=== PATIENT | male | born 1965 | race Caucasian/White ===

== ENCOUNTER 2017-04-03 09:31 | Day surgery (SDC) | payer BC ==
[2017-04-02 08:57] VITALS: BMI 29.4
[~2017-04-03 09:31] MED LIST: LACTATED RINGERS 1,000 ML IV SCH; LIDOCAINE 1% 20 ML VIAL (10MG/ML) FOR IV START INTRADERMA PRN
[2017-04-03 10:18] VITALS: TEMP 98
[2017-04-03] MEDS ORDERED: LACTATED RINGERS 1,000 ML IV ONE (10:18)
[2017-04-03] MEDS ORDERED: PROPOFOL 10 MG/ML 20 ML VIAL IV ONE (10:49)
[2017-04-03] MEDS ORDERED: LIDOCAINE 1% INJ 10MG/ML (20 ML MDV) ONE (10:49)
[2017-04-03] MEDS ORDERED: GLYCOPYRROLATE 0.2 MG/ML 2 ML VIAL ONE (10:49)
--- NOTE | 2017-04-03 11:19 | P.PCN ---
Date of Procedure: 04/03/17 Preoperative Diagnosis: Postoperative Diagnosis: Procedure(s) Performed: BRIEF HISTORY: Patient is a 52-year-old pleasant white male, scheduled for an elective colonoscopy as a part of screening for colorectal neoplasia. PROCEDURE PERFORMED: Colonoscopy with snare polypectomy. PREOPERATIVE DIAGNOSIS: Screening for colon cancer. IV sedation per Anesthesia. PROCEDURE: After informed consent was obtained, the patient, was brought into the endoscopy unit. IV sedation was administered by Anesthesia under continuous monitoring. Digital rectal examination was normal. Initially the Olympus CF- 160 flexible video colonoscope was then inserted in the rectum, gradually advanced into the cecum without any difficulty. Careful examination was performed as the scope was gradually being withdrawn. Ileocecal valve and the appendiceal orifice were visualized and appeared normal. Prep was excellent. Mucosa of the cecum appeared normal. In the ascending colon there was a 1 cm flat ascending colon polyp that was removed by snare polypectomy. The rest of the, ascending colon, transverse colon, descending colon, sigmoid colon, and rectum appeared normal. Scattered sigmoid diverticulosis seen. Retroflexion was performed in the rectum and small internal hemorrhoids were seen. The patient tolerated the procedure well. IMPRESSION: 1 m flat ascending colon polyp status post snare polypectomy Scattered sigmoid diverticulosis Small internal hemorrhoids RECOMMENDATIONS: Findings of this examination were discussed with the patient as well as his family.. He was advised to follow with the biopsy results. If the biopsy shows a tubular adenoma he can have a repeat colonoscopy in 5 years. n Implants: Indications for Procedure: Operative Findings: Description of Procedure:
[2017-04-03 11:43] VITALS: BP 117/82; PULSE 69; RESP 18
== END 2017-04-03 12:00 | disposition home or self-care (01) ==
LOC: ORWHC2ENDO 09:31
PROVIDERS: ATTEND Internal Medicine Gastroenterology
DX: Z12.11 Encounter for screening for malignant neoplasm of colon (principal); K63.5 Polyp of colon; K57.30 Diverticulosis of large intestine without perforation or abscess without bleeding; K64.8 Other hemorrhoids; Z79.1 Long term (current) use of non-steroidal anti-inflammatories (NSAID)
CPT/HCPCS: 88305; 45385; J2001; J2704

== ENCOUNTER → 2021-02-16 | Outpatient (CLI) | payer BC ==
--- NOTE | 2021-02-16 12:48 | ECHOF ---
Referral Reason:R30.9 edema MEASUREMENTS -------- HEIGHT: 177.8 cm WEIGHT: 95.3 kg BP: RVIDd: 2.9 cm (< 3.3) IVSd: 0.8 cm (0.6 - 1.1) LVIDd: 4.7 cm (3.9 - 5.3) LVPWd: 0.8 cm (0.6 - 1.1) IVSs: 1.4 cm LVIDs: 2.9 cm LVPWs: 1.6 cm LA Diam: 3.4 cm (2.7 - 3.8) LAESV Index (A-L): 30.83 ml/m Ao Diam: 2.9 cm (2.0 - 3.7) AV Cusp: 2.3 cm (1.5 - 2.6) MV EXCURSION: 10.629 mm (> 18.000) MV EF SLOPE: 90 mm/s (70 - 150) EPSS: 0.3 cm MV E Virgilio: 0.87 m/s MV DecT: 117 ms MV A Virgilio: 0.64 m/s MV E/A Ratio: 1.35 RAP: 5.00 mmHg RVSP: 23.93 mmHg FINDINGS -------- Sinus rhythm. This was a technically good study. The left ventricular size is normal. Left ventricular wall thickness is normal. Overall left vent ricular systolic function is normal with, an EF between 60 - 65 %. The right ventricle is normal in size. LA is midly dilated 29-33ml/m2. The right atrium is normal in size. Interatrial and interventricular septum intact. The aortic valve is trileaflet, and appears structurally normal. No aortic stenosis or regurgitation. Mild mitral regurgitation is present. Mild tricuspid regurgitation present. Right ventricular systolic pressure is normal at < 35 mmHg. Trace/mild (physiologic) pulmonic regurgitation. The aortic root size is normal. Normal inferior vena cava with normal inspiratory collapse consistent with estimated right atrial pre ssure of 5 mmHg. There is no pericardial effusion. CONCLUSIONS -------- 1. The left ventricular size is normal. 2. Left ventricular wall thickness is normal. 3. Overall left ventricular systolic function is normal with, an EF between 60 - 65 %. 4. LA is midly dilated 29-33ml/m2. 5. The aortic valve is trileaflet, and appears structurally normal. No aortic stenosis or regurgitati on. 6. Mild mitral regurgitation is present. 7. Mild tricuspid regurgitation present. 8. Trace/mild (physiologic) pulmonic regurgitation. 9. There is no pericardial effusion. MACHINE BANDER AND CELLOPHANER: Kalina Moseley RDCS
== END | disposition home or self-care (01) ==
LOC: RADECHMAIN 08:19
PROVIDERS: ATTEND Family Medicine
DX: I08.8 Other rheumatic multiple valve diseases (principal)
CPT/HCPCS: 93306

== ENCOUNTER 2023-08-06 08:31 | Day surgery (SDC) | payer BC ==
[~2023-08-06 08:31] MED LIST changes: -LIDOCAINE 1% 20 ML VIAL (10MG/ML) FOR IV START INTRADERMA PRN
[2023-08-06 09:51] VITALS: TEMP 97.5
[2023-08-06] MEDS ORDERED: PROPOFOL 10 MG/ML 20 ML VIAL IV ONE (10:23)
[2023-08-06] MEDS ORDERED: GLYCOPYRROLATE 0.2 MG/ML 2 ML VIAL ONE (10:23)
--- NOTE | 2023-08-06 10:55 | P.PCN ---
Date of Procedure: 08/06/23 Procedure(s) Performed: BRIEF HISTORY: Patient is a 58-year-old pleasant I male scheduled for an elective colonoscopy as a part of screening for colon cancer. His family history of colon cancer diagnosed and grandfather which 70. PROCEDURE PERFORMED: Colonoscopy. PREOPERATIVE DIAGNOSIS: Screening for colon cancer. IV sedation per Anesthesia. PROCEDURE: After informed consent was obtained, the patient, was brought into the endoscopy unit. IV sedation was administered by Anesthesia under continuous monitoring. Digital rectal examination was normal. Initially the Olympus CF-160 flexible video colonoscope was then inserted in the rectum, gradually advanced into the cecum without any difficulty. Careful examination was performed as the scope was gradually being withdrawn. Ileocecal valve and the appendiceal orifice were visualized and appeared normal. Prep was fair. Mucosa of the cecum, as cending colon, transverse colon, descending colon, sigmoid colon, and rectum appeared normal. Sigmoid diverticulosis. Retroflexion was performed in the rectum and small internal hemorrhoids were seen. The patient tolerated the procedure well. IMPRESSION: Normal-appearing colon from rectum to cecum with no evidence of colorectal neoplasia . Scattered sigmoid diverticulosis and small internal hemorrhoids RECOMMENDATIONS: Findings of this examination were discussed with the patient as well as his family. He was advised to have a repeat screening colonoscopy in 10 years..
[2023-08-06 11:24] VITALS: BP 120/86; PULSE 82; RESP 17
== END 2023-08-06 11:30 | disposition home or self-care (01) ==
LOC: ORWHC2ENDO 08:31
PROVIDERS: ATTEND Internal Medicine Gastroenterology
DX: Z12.11 Encounter for screening for malignant neoplasm of colon (principal); Z80.0 Family history of malignant neoplasm of digestive organs; K64.8 Other hemorrhoids; K57.30 Diverticulosis of large intestine without perforation or abscess without bleeding; I73.9 Peripheral vascular disease, unspecified; M19.90 Unspecified osteoarthritis, unspecified site; Z79.899 Other long term (current) drug therapy
CPT/HCPCS: 45378; J2704

== ENCOUNTER 2024-04-14 15:37 | Emergency (ER) | payer BC ==
[2024-04-14 15:52] VITALS: PULSE 70; RESP 18; TEMP 98.7
[2024-04-14 16:37] LABS: Basophils % (A) 0 %; Eosinophils # (A) 0.1 k/uL (0-0.7); Eosinophils % (A) 1 %; HCT 40.8 % (39.0-53.0); HGB 13.7 gm/dL (13.0-17.5); Lymphocytes # (A) 1.5 k/uL (1.0-4.8); Lymphocytes % (A) 17 %; MCH 32.3 pg (25.0-35.0); MCHC 33.7 g/dL (31.0-37.0); MCV 95.9 fL (80.0-100.0); Mean Platelet Volume 8.3; Monocytes # (A) 0.5 k/uL (0-1.0); Monocytes % (A) 5 %; Neutrophils # (A) 6.8 k/uL (1.3-7.7); Neutrophils % (A) 76 %; Platelet Count 233 k/uL (150-450); RBC 4.25 m/uL (4.30-5.90); RDW 11.6 % (11.5-15.5)
[2024-04-14] MEDS: SODIUM CHLORIDE 0.9% 1,000 ML IV STA (16:37)
--- NOTE | 2024-04-14 16:49 | ED ---
General Adult HPI - General Chief complaint: Syncope Stated complaint: Syncope Time Seen by Provider: 04/14/24 15:50 Source: patient, EMS, RN notes reviewed Mode of arrival: EMS Limitations: no limitations - History of Present Illness Initial comments: This is a 59-year-old male with no significant past medical history presents emergency department chief complaint of a syncopal event that occurred this afternoon. Patient states that he was in a program with his friend where he was drinking a alcoholic beverage and had roughly 4 hits of a marijuana vape and he started to feel lightheaded and dizzy. It was reported to the patient by his friend that he passed out for roughly 10 seconds. Patient denies hitting his head during this event. He states that after this event he felt "foggy "for about an hour. Currently patient is denies symptoms of chest pain, shortness of breath, difficulty breathing, heart palpitations, dizziness, lightheadedness. He denies peripheral edema, recent prolonged travel, pain in his calfs, history of DVT, PE, WA or CVA. - Related Data Home Medications Medication Instructions Recorded Confirmed Ibuprofen [Advil] 200 mg PO Q8HR PRN 04/02/17 08/06/23 Allergies Allergy/AdvReac Type Severity Reaction Status Date / Time No Known Allergies Allergy Verified 08/06/23 09:26 Review of Systems ROS Statement: Those systems with pertinent positive or pertinent negative responses have been documented in the HPI. ROS Other: All systems not noted in ROS Statement are negative. Past Medical History Past Medical History: Osteoarthritis (OA), Vascular Disorder Additional Past Medical History / Comment(s): vericose veins History of Any Multi-Drug Resistant Organisms: None Reported Past Surgical History: Orthopedic Surgery Additional Past Surgical History / Comment(s): NASAL SURGERY X2, KNEE ARTHROSCOPY, FINGER TENDON SURGERY., VARICOSE VEINS REMOVED (NO ANESTHESIA) Past Anesthesia/Blood Transfusion Reactions: No Reported Reaction Past Psychological History: No Psychological Hx Reported Smoking Status: Never smoker - Past Family History Mother Family Medical History: No Reported History General Exam Limitations: no limitations General appearance: alert, in no apparent distress Head exam: Present: atraumatic, normocephalic, normal inspection Eye exam: Present: normal appearance, PERRL, EOMI. Absent: scleral icterus, conjunctival injection, periorbital swelling ENT exam: Present: normal exam, mucous membranes moist Neck exam: Present: normal inspection. Absent: tenderness, meningismus, lymphadenopathy Respiratory exam: Present: normal lung sounds bilaterally. Absent: respiratory distress, wheezes, rales, rhonchi, stridor Cardiovascular Exam: Present: regular rate, normal rhythm, normal heart sounds. Absent: systolic murmur, diastolic murmur, rubs, gallop, clicks GI/Abdominal exam: Present: soft, normal bowel sounds. Absent: distended, tenderness, guarding, rebound, rigid Extremities exam: Present: normal inspection, full ROM, normal capillary refill. Absent: tenderness, pedal edema, joint swelling, calf tenderness Back exam: Present: normal inspection Neurological exam: Present: alert, oriented X3, CN II-XII intact Psychiatric exam: Present: normal affect, normal mood Skin exam: Present: warm, dry, intact, normal color. Absent: rash Course Vital Signs 04/14/24 04/14/24 15:46 18:23 Temperature 98.7 F Pulse Rate 70 70 Respiratory 18 18 Rate Blood Pressure 130/76 130/70 O2 Sat by Pulse 97 98 Oximetry Medical Decision Making - Medical Decision Making Was pt. sent in by a medical professional or institution (, PA, EARTH MOVING TECHNICIAN, urgent care, hospital, or senior care...) When possible be specific @ -No Did you speak to anyone other than the patient for history (EMS, parent, family, police, friend...)? What history was obtained from this source @ -The patient's at bedside states that the patient does not have any significant cardiac past medical history. Did you review nursing and triage notes (agree or disagree)? Why? @ -I reviewed and agree with nursing and triage notes Were old charts reviewed (outside hosp., previous admission, EMS record, old EKG, old radiological studies, urgent care reports/EKG's, senior care records)? Report findings @ -No old charts were reviewed Differential Diagnosis (chest pain, altered mental status, abdominal pain women, abdominal pain men, vaginal bleeding, weakness, fever, dyspnea, syncope, headache, dizziness, GI bleed, back pain, seizure, CVA, palpatations, mental health, musculoskeletal)? @ -Differential Syncope: Valvular disease, hypertrophic cardiomyopathy, pulmonary embolism, tamponade, tachycardia, bradycardia, WA, hypovolemia, hemorrhage, dissection, anemia, intracranial hemorrhage, seizure, hypoglycemia, carbon monoxide poisoning, this is not meant to be an all-inclusive list. EKG interpreted by me (3pts min.). @ -completed at 1555, sinus rhythm with first-degree AV block and a SD interval of 238, ventricular rate 71, QTc 407. No acute signs of ischemia. X-rays interpreted by me (1pt min.). @ -X-ray no acute cardiopulmonary process or disease CT interpreted by me (1pt min.). @ -None done U/S interpreted by me (1pt. min.). @ -None done What testing was considered but not performed or refused? (CT, X-rays, U/S, labs)? Why? @ -None What meds were considered but not given or refused? Why? @ -None Did you discuss the management of the patient with other professionals (professionals i.e. , PA, EARTH MOVING TECHNICIAN, lab, RT, psych nurse, psych social worker, literature teacher, teacher, administrative officer, case consultant)? Give summary @ -No Was smoking cessation discussed for >3mins.? @ -No Was critical care preformed (if so, how long)? @ -No Were there social determinants of health that impacted care today? How? (Homelessness, low income, unemployed, alcoholism, drug addiction, transportation, low edu. Level, literacy, decrease access to med. care, usp, rehab)? @ -No Was there de-escalation of care discussed even if they declined (Discuss DNR or withdrawal of care, Hospice)? DNR status @ -No What co-morbidities impacted this encounter? (DM, HTN, Smoking, COPD, CAD, Cancer, CVA, ARF, Chemo, Hep., AIDS, mental health diagnosis, sleep apnea, morbid obesity)? @ -None Was patient admitted / discharged? Hospital course, mention meds given and route, prescriptions, significant lab abnormalities, going to OR and other pertinent info. @ -59-year-old male with syncopal event. On examination patient is resting comfortably on room air also stable, EKG showing sinus rhythm with no acute signs of ischemia. Patient is neurologically intact and there are no acute findings on examination. Patient is provided with a liter fluid bolus pending labs and chest x-ray interpretation. CBC and CMP grossly unremarkable. Troponin nonelevated less than 0.012. Urine tox screen negative. Hide no acute findings. On reevaluation patient states that he is feeling better and is continuing to deny symptoms. Patient is stable for discharge at this time. Recommend that he follows up with his primary care provider this week for furthe r evaluation. All questions answered at bedside and strict return parameters malcolm with the patient is verbalized understanding. Discussed with Dr. Talbert Undiagnosed new problem with uncertain prognosis? @ -No Drug Therapy requiring intensive monitoring for toxicity (Heparin, Nitro, Insulin, Cardizem)? @ -No Were any procedures done? @ -No Diagnosis/symptom? @ -Syncope Acute, or Chronic, or Acute on Chronic? @ -Acute Uncomplicated (without systemic symptoms) or Complicated (systemic symptoms)? @ -Uncomplicated Side effects of treatment? @ -No Exacerbation, Progression, or Severe Exacerbation? @ -No Poses a threat to life or bodily function? How? (Chest pain, USA, WA, pneumonia, PE, COPD, DKA, ARF, appy, cholecystitis, CVA, Diverticulitis, Homicidal, Suicidal, threat to staff... and all critical care pts) @ -No - Lab Data Result diagrams: 04/14/24 16:18 04/14/24 16:18 Lab Results 04/14/24 04/14/24 04/14/24 Range/Units 16:18 16:18 16:18 WBC 9.0 (3.8-10.6) k/uL RBC 4.25 L (4.30-5.90) m/uL Hgb 13.7 (13.0-17.5) gm/dL Hct 40.8 (39.0-53.0) % MCV 95.9 (80.0-100.0) fL MCH 32.3 (25.0-35.0) pg MCHC 33.7 (31.0-37.0) g/dL RDW 11.6 (11.5-15.5) % Plt Count 233 (150-450) k/uL MPV 8.3 Neutrophils % 76 % Lymphocytes % 17 % Monocytes % 5 % Eosinophils % 1 % Basophils % 0 % Neutrophils # 6.8 (1.3-7.7) k/uL Lymphocytes # 1.5 (1.0-4.8) k/uL Monocytes # 0.5 (0-1.0) k/uL Eosinophils # 0.1 (0-0.7) k/uL Basophils # 0.0 (0-0.2) k/uL Sodium 136 L (137-145) mmol/L Potassium 3.9 (3.5-5.1) mmol/L Chloride 106 (98-107) mmol/L Carbon Dioxide 23 (22-30) mmol/L Anion Gap 7 mmol/L BUN 31 H (9-20) mg/dL Creatinine 0.92 (0.66-1.25) mg/dL Est GFR (CKD-EPI)AfAm >90 (>60 ml/min/1.73 sqM) Est GFR (CKD-EPI)NonAf >90 (>60 ml/min/1.73 sqM) Glucose 92 (74-99) mg/dL Calcium 9.1 (8.4-10.2) mg/dL Magnesium 1.7 (1.6-2.3) mg/dL Total Bilirubin 0.6 (0.2-1.3) mg/dL AST 30 (17-59) U/L ALT 27 (4-49) U/L Alkaline Phosphatase 73 (38-126) U/L Troponin I <0.012 (0.000-0.034) ng/mL Total Protein 6.5 (6.3-8.2) g/dL Albumin 4.2 (3.5-5.0) g/dL Urine Opiates Screen (NotDetected) Ur Oxycodone Screen (NotDetected) Urine Methadone Screen (NotDetected) Ur Barbiturates Screen (NotDetected) U Tricyclic Antidepress (NotDetected) Ur Phencyclidine Scrn (NotDetected) Ur Amphetamines Screen (NotDetected) U Methamphetamines Scrn (NotDetected) U Benzodiazepines Scrn (NotDetected) Urine Cocaine Screen (NotDetected) U Marijuana (THC) Screen (NotDetected) 04/14/24 Range/Units 16:37 WBC (3.8-10.6) k/uL RBC (4.30-5.90) m/uL Hgb (13.0-17.5) gm/dL Hct (39.0-53.0) % MCV (80.0-100.0) fL MCH (25.0-35.0) pg MCHC (31.0-37.0) g/dL RDW (11.5-15.5) % Plt Count (150-450) k/uL MPV Neutrophils % % Lymphocytes % % Monocytes % % Eosinophils % % Basophils % % Neutrophils # (1.3-7.7) k/uL Lymphocytes # (1.0-4.8) k/uL Monocytes # (0-1.0) k/uL Eosinophils # (0-0.7) k/uL Basophils # (0-0.2) k/uL Sodium (137-145) mmol/L Potassium (3.5-5.1) mmol/L Chloride (98-107) mmol/L Carbon Dioxide (22-30) mmol/L Anion Gap mmol/L BUN (9-20) mg/dL Creatinine (0.66-1.25) mg/dL Est GFR (CKD-EPI)AfAm (>60 ml/min/1.73 sqM) Est GFR (CKD-EPI)NonAf (>60 ml/min/1.73 sqM) Glucose (74-99) mg/dL Calcium (8.4-10.2) mg/dL Magnesium (1.6-2.3) mg/dL Total Bilirubin (0.2-1.3) mg/dL AST (17-59) U/L ALT (4-49) U/L Alkaline Phosphatase (38-126) U/L Troponin I (0.000-0.034) ng/mL Total Protein (6.3-8.2) g/dL Albumin (3.5-5.0) g/dL Urine Opiates Screen Not Detected (NotDetected) Ur Oxycodone Screen Not Detected (NotDetected) Urine Methadone Screen Not Detected (NotDetected) Ur Barbiturates Screen Not Detected (NotDetected) U Tricyclic Antidepress Not Detected (NotDetected) Ur Phencyclidine Scrn Not Detected (NotDetected) Ur Amphetamines Screen Not Detected (NotDetected) U Methamphetamines Scrn Not Detected (NotDetected) U Benzodiazepines Scrn Not Detected (NotDetected) Urine Cocaine Screen Not Detected (NotDetected) U Marijuana (THC) Screen Not Detected (NotDetected) Disposition Clinical Impression: Syncope Disposition: HOME SELF-CARE Condition: Good Instructions (If sedation given, give patient instructions): Syncope (ED) Additional Instructions: Return to the emergency department for any new or worsening symptoms. Recommend a follow-up with your primary care provider this week for further evaluation. Is patient prescribed a controlled substance at d/c from ED?: No Referrals: Dillon Mccann MD [Primary Care Provider] - 1-2 days Time of Disposition: 17:48
[2024-04-14 16:52] LABS: ALT 27 U/L (4-49); African American GFR (CKD) >90 (>60 ml/min/1.73 sqM); Albumin 4.2 g/dL (3.5-5.0); Anion Gap 7 mmol/L; Blood Urea Nitrogen 31 mg/dL (9-20); Calcium 9.1 mg/dL (8.4-10.2); Carbon Dioxide 23 mmol/L (22-30); Chloride 106 mmol/L (98-107); Glucose 92 mg/dL (74-99); Non-African American GFR(CKD) >90 (>60 ml/min/1.73 sqM); Sodium 136 mmol/L (137-145); Total Bilirubin 0.6 mg/dL (0.2-1.3); Total Protein 6.5 g/dL (6.3-8.2)
[2024-04-14 16:53] LABS: Amphetamine Screen,Urine Not Detected (NotDetected); Barbiturate Screen,Urine Not Detected (NotDetected); Benzodiazepines Screen,Urine Not Detected (NotDetected); Cocaine Screen,Urine Not Detected (NotDetected); Methadone Screen, Urine Not Detected (NotDetected); Opiate Screen,Urine Not Detected (NotDetected); Oxycodone Screen, Urine Not Detected (NotDetected); Phencyclidine Screen,Urine Not Detected (NotDetected); Tricyclic Antidepressant,Urine Not Detected (NotDetected); Urn Cannabinoid Scrn Not Detected (NotDetected)
[2024-04-14 16:55] LABS: AST 30 U/L (17-59); Magnesium 1.7 mg/dL (1.6-2.3); Potassium 3.9 mmol/L (3.5-5.1)
[2024-04-14 16:56] LABS: Alkaline Phosphatase 73 U/L (38-126)
--- NOTE | 2024-04-14 17:12 | XR ---
EXAMINATION TYPE: XR chest 2V DATE OF EXAM: 04/14/2024 COMPARISON: NONE HISTORY: Chest pain TECHNIQUE: Frontal and lateral views of the chest are obtained. FINDINGS: There is no focal air space opacity. No evidence for pneumothorax. No pleural effusion. The cardiac silhouette size is within normal limits. The osseous structures are grossly intact. IMPRESSION: 1. No acute cardiopulmonary process.
[2024-04-14 18:23] VITALS: BP 130/70
== END 2024-04-14 18:29 | disposition home or self-care (01) ==
LOC: EC 15:37
DX: R55 Syncope and collapse (principal)
CPT/HCPCS: 36415; 71046; 80053; 80306; 83735; 84484; 85025; 93005; 96360; 99285

== ENCOUNTER → 2024-06-15 | Outpatient (CLI) | payer BC ==
--- NOTE | 2024-06-15 16:09 | US ---
EXAMINATION TYPE: US carotid duplex BILAT DATE OF EXAM: 06/15/2024 COMPARISON: NONE CLINICAL INDICATION: Male, 59 years old with history of I51.7 CARDIOMEGALY I65.23 STENOSIS; Cardiomeg maru. TECHNIQUE: Carotid duplex ultrasound examination. Indirect Doppler criteria was utilized. FINDINGS: EXAM MEASUREMENTS: RIGHT: Peak Systolic Velocity (PSV) cm/sec ----- Right CCA: 105 ----- Right ICA: 101 ----- Right ECA: 112 ICA/CCA ratio: 0.96 RIGHT: End Diastole cm/sec ----- Right CCA: 24.4 ----- Right ICA: 38.8 ----- Right ECA: 20.2 LEFT: Peak Systolic Velocity (PSV) cm/sec ----- Left CCA: 89.7 ----- Left ICA: 77.1 ----- Left ECA: 81.3 ICA/CCA ratio: 0.86 LEFT: End Diastole cm/sec ----- Left CCA: 29.5 ----- Left ICA: 27.8 ----- Left ECA: 16.3 VERTEBRALS (direction of flow): Right Vertebral: Antegrade Left Vertebral: Antegrade Rhythm: Normal [facility]HAB[facility] MANAGER NOTES: No elevated velocities. IMPRESSION: Less than 50% stenosis of the bilateral carotid bifurcations. Criteria for Assigning % of Stenosis / Diameter reduction (Estimation based on the indirect measurements of the internal carotid artery velocities (ICA PSV). 1. Normal (no stenosis)=ICA PSV < 125 cm/s: ratio < 2.0: ICA EDV<40 cm/s. 2. Less than 50% stenosis=ICA PSV < 125 cm/s: ratio < 2.0: ICA EDV<40 cm/s. 3. 50 to 69% stenosis=ICA PSV of 125 to 230 cm/s: ration 2.0 ? 4.0: ICA EDV 40-100 cm/s. 4. Greater than 70% stenosis to near occlusion= ICA PSV > 230 cm/s: ratio > 4.0: ICA EDV > 100 cm/s. 5. Near occlusion= ICA PSV velocities may be low or undetectable: variable ratio and ICA EDV. 6. Total occlusion=unable to detect flow. [facility], , 06/15/2024 4:06 PM
--- NOTE | 2024-06-15 17:23 | CA ---
Transthoracic Echo Report Name: Dillon Toribio Age: 59 Gender: M : 1965 Exam Date: 06/15/2024 15:30 Exam Location: [facility] Ht (in): 70 Wt (lb): 215 Ordering Physician: Magali Ernst MD Attending/Referring Phys: Magali Ernst MD Valve Inspector Jenifer Caro RDCS Procedure CPT: Indications: I51.7 CARDIOMEGALY I65.23 STENOSIS Cardiac Hx: Technical Quality: Fair Contrast 1: Total Dose (mL): Contrast 2: Total Dose (mL): MEASUREMENTS (Male / Female) Normal Values 2D ECHO LV Diastolic Diameter PLAX 4.4 cm 4.2 - 5.9 / 3.9 - 5.3 cm LV Systolic Diameter PLAX 2.7 cm IVS Diastolic Thickness 1.1 cm 0.6 - 1.0 / 0.6 - 0.9 cm LVPW Diastolic Thickness 1.0 cm 0.6 - 1.0 / 0.6 - 0.9 cm LV Relative Wall Thickness 0.5 RV Internal Dim ED PLAX 3.9 cm LA Volume 73.0 cm??? 18 - 58 / 22 - 52 cm??? LA Volume Index 32.8 cm???/m??? 16 - 28 cm???/m??? M-MODE Aortic Root Diameter MM 2.5 cm LA Systolic Diameter MM 4.2 cm LA Ao Ratio MM 1.7 AV Cusp Separation MM 1.6 cm DOPPLER AV Peak Velocity 119.2 cm/s AV Peak Gradient 5.7 mmHg AV Mean Velocity 84.2 cm/s AV Mean Gradient 3.2 mmHg AV Velocity Time Integral 23.7 cm LVOT Peak Velocity 96.8 cm/s LVOT Peak Gradient 3.7 mmHg LVOT Velocity Time Integral 19.6 cm MV Area PHT 4.9 cm??? Mitral E Point Velocity 69.6 cm/s Mitral A Point Velocity 62.1 cm/s Mitral E to A Ratio 1.1 MV Deceleration Time 154.1 ms MV E' Velocity 8.6 cm/s Mitral E to MV E' Ratio 8.1 TR Peak Velocity 225.0 cm/s TR Peak Gradient 20.3 mmHg Right Ventricular Systolic Press 25.2 mmHg FINDINGS Left Ventricle Left ventricular cavity size normal. Left ventricular wall thickness normal. Normal left ventricular systolic function with no obvious regional wall motion abnormalities. Left ventricular ejection fraction is estimated at 55-60 %. Right Ventricle Mild right ventricular dilatation. Right ventricular systolic pressure within normal limits. Right Atrium Normal right atrial size. Left Atrium Mildly increased left atrial volume. Mitral Valve Structurally normal mitral valve. Trace mitral regurgitation. Aortic Valve Trileaflet aortic valve. No aortic valve stenosis or regurgitation. Tricuspid Valve Structurally normal tricuspid valve. Mild tricuspid regurgitation. Pulmonic Valve Structurally normal pulmonic valve. Pericardium No pericardial effusion. Aorta Normal size aortic root and proximal ascending aorta. CONCLUSIONS Left ventricular systolic function is normal Previewed by: Dr. Nathaniel Zhang MD (Electronically Signed) Final Date: 15 June 2024 17:22
== END | disposition home or self-care (01) ==
LOC: RADUSWWP 15:05
PROVIDERS: ATTEND Internal Medicine
DX: I51.7 Cardiomegaly (principal); I65.23 Occlusion and stenosis of bilateral carotid arteries
CPT/HCPCS: 93306; 93880

== ENCOUNTER → 2024-08-12 | Outpatient (CLI) | payer BC ==
[2024-08-12 15:48] VITALS: BP 119/75; PULSE 80; RESP 16; TEMP 97.8
--- NOTE | 2024-08-12 16:14 | P.SLEEP ---
History of Present Illness DATE: 08/12/2024 CONSULTATION/NEW PATIENT EVALUATION HISTORY OF PRESENT ILLNESS/SLEEP-WAKE EVALUATION: 59-year-old gentleman had been evaluated in the sleep center for possible obstructive sleep apnea hypopnea syndrome. SLEEP SCHEDULE: Usually sleep schedule from 10:30 PM to 6 AM. FALLING ASLEEP: No problems with falling asleep. DURING SLEEP: Patient snores, has difficulties to breathe through the nose breathing with open mouth. Positive history of dry mouth. Patient wakes up from sleep up to 5 times with 2 episodes of nocturia. No history of hypnogogical hallucinations, sleep paralysis, or cataplexy. DURING THE DAY/WAKE STATE: Patient may feel sleepiness during the day. [place] sleepiness scale is 7. Patient may take naps occasionally. PAST MEDICAL HISTORY: Hyperlipidemia. PAST SURGICAL HISTORY: Reconstruction of the nose. MEDICATIONS: Atorvastatin 40 mg once a day. SOCIAL HISTORY: Please see below. FAMILY HISTORY: Please see below. REVIEW OF SYSTEMS: Snoring, multiple awakenings from sleep. No fevers. No double vision. No recent chest pain. No shortness of breath. No abdominal pain. No ble eding episodes. No blood in urine. No seizure episodes. PHYSICAL EXAMINATION: GENERAL: A pleasant patient without any distress. VITAL SIGNS: Please see below, weight 225 pounds, BMI 32.7. HEENT: PERRLA, EOMI. Evaluation of oropharynx showed tongue protrudes midline, low position of soft palate Mallampati 2-3, retrognathia 3 mm. NECK: Supple. No JVD. Thyroid is not palpable. 16 inches in circumference. LUNGS: Clear to percussion and to auscultation. Good air exchange. No wheezing or rhonchi. HEART: S1, S2 regular. No murmurs, gallops or rubs. ABDOMEN: Soft and nontender. Bowel sounds are present. No organomegaly appreciated. EXTREMITIES: No clubbing or cyanosis. BURR SANDER: Awake, alert, and oriented x3. Cranial nerves 2 to 7 intact. There is no fasciculation or atrophy noted. No focal deficits observed. ASSESSMENT: 1. Snoring, multiple awakenings from sleep, retrognathia 3 mm, moderately low position of soft palate Mallampati 23. Obstructive sleep apnea hypopnea syndrome. 2. Obesity in mild range, BMI 32.7. 3. Hyperlipidemia. 4. Status post nasal reconstruction surgery. PLAN: 1. Home sleep apnea test for evaluation of patient's breathing during sleep. 2. Following plan after reading sleep study. 3. Preferable position during sleep on the side. 4. No driving if patient feels any sleepiness. Patient is aware of civil and criminal liability for unsafe driving. 5. Sleep hygiene with regular sleep time for at least 7.5-8 hours. 6. Watching weight. Thank you very much for referring this patient for consultation. Sincerely, Nilesh Linn MD, PhD, FAASM. Diplomat of [place] [employer], Sleep Medicine Board by [place] [employer] [place] [employer] Church Administrator of [facility] [place] cc: Magali Ernst MD Past Medical History Past Medical History: Osteoarthritis (OA), Vascular Disorder Additional Past Medical History / Comment(s): vericose veins History of Any Multi-Drug Resistant Organisms: None Reported Past Surgical History: Orthopedic Surgery Additional Past Surgical History / Comment(s): NASAL SURGERY X2, KNEE ARTHROSCOPY, FINGER TENDON SURGERY., VARICOSE VEINS REMOVED (NO ANESTHESIA) Past Anesthesia/Blood Transfusion Reactions: No Reported Reaction Past Psychological History: No Psychological Hx Reported Smoking Status: Never smoker Past Alcohol Use History: Occasional Past Drug Use History: None Reported - Past Family History Mother Family Medical History: No Reported History, Diabetes Mellitus, GERD/Reflux, Hyperlipidemia, Osteoarthritis (OA) Father Family Medical History: Osteoarthritis (OA) Additional Family Medical History / Comment(s): sissy 2012 Medications and Allergies Home Medications Medication Instructions Recorded Confirmed Type Ibuprofen [Advil] 200 mg PO Q8HR PRN 04/02/17 08/12/24 History Atorvastatin [Lipitor] 40 mg PO DAILY 08/12/24 08/12/24 History Allergies Allergy/AdvReac Type Severity Reaction Status Date / Time No Known Allergies Allergy Verified 08/06/23 09:26 Physical Exam Vitals: Vital Signs Temp Pulse Resp BP Pulse Ox 08/12/24 15:46 97.8 F 80 16 119/75 97 Intake and Output 08/12/24 08/12/24 08/12/24 06:59 14:59 22:59 Other: Weight 102.058 kg Sleep Note - Sleep Data ESS Total: 7 - Sleep Note Sleep Note: Temperature: 97.8 F Pulse Rate: 80 Respiratory Rate: 16 Blood Pressure: 119/75 SpO2: 97 Height: 5 ft 9.5 in Weight: 102.058 kg BMI: Neck Circumference: 16
== END ==
LOC: 3 N SLEEP 15:20
PROVIDERS: ATTEND Internal Medicine
DX: G47.33 Obstructive sleep apnea (adult) (pediatric) (principal); E66.9 Obesity, unspecified; E78.5 Hyperlipidemia, unspecified; M26.19 Other specified anomalies of jaw-cranial base relationship; Z98.890 Other specified postprocedural states; Z68.32 Body mass index [BMI] 32.0-32.9, adult
CPT/HCPCS: 99211

== ENCOUNTER → 2024-08-19 | Outpatient (CLI) | payer BC ==
--- NOTE | 2024-08-20 14:35 | P.PCN ---
Description of Procedure: CLINICAL: A home sleep apnea test has been done for confirmation of possible obstructive sleep apnea-hypopnea syndrome. DESCRIPTION OF PROCEDURE: RESULTS: Recording time was 8 hours 2 minutes. Evaluation time was 7 hours 52 minutes. Evaluation time is sufficient for making conclusion about results of the test. Raw data of sleep recording has been reviewed and is adequate. Respiratory channel showed 247 apneas and 147 hypopneas. Apnea-hypopnea index was 50.1 per hour, which included obstructive apnea index 19.6, central apnea index 10.7, mixed apnea index 0.1. Pulse rate in the range between minimum 61, maximum 99, average 73 by computer calculation. Lowest desaturation was 79%. IMPRESSION: 1. Extremely severe Obstructive Sleep Apnea Hypopnea Syndrome. Please see other impressions from consultation. PLAN: 1. The patient should have PAP titration for correction of respiratory abnormallities during sleep. 2. Sleep hygiene with regular time in bed for at least 8 hours. 3. Watching and losing weight. 4. No driving if feeling any sleepiness. Thank you very much for allowing me to participate in the management of your patient. Sincerely, Nilesh Linn MD, PhD, FAASM Diplomat of [place] [employer] Sleep Medicine Board of [place] [employer] of [employer] Medicine Grievance Coordinator of [facility] [place] cc: Magali Ernst MD
== END ==
LOC: 3 N SLEEP 10:53
PROVIDERS: ATTEND Internal Medicine
DX: G47.33 Obstructive sleep apnea (adult) (pediatric) (principal)

== ENCOUNTER 2024-10-19 19:40 | Outpatient (CLI) | payer BC ==
--- NOTE | 2024-10-21 10:52 | P.PCN ---
Description of Procedure: CLINICAL: Titration with positive air pressure has been done for correction of respiratory abnormalities during sleep. DESCRIPTION OF PROCEDURE: The standard montage for clinical polysomnography included the electroencephalogram, the electrocardiogram, the mentalis surface electromyography and Lead II cardiography. The respiratory battery consisted of measurements of nasal /buccal air flow, pressure transducer measurements from the nose, thoracic and /or abdominal effort and intercostal surface electromyography. Video monitoring has been done to check for any parasomnia events. Nocturnal oxyhemoglobin saturations were obtained by finger oximetry. Step-rodriguez titration with positive airway pressure was utilized to control respiratory events. Raw data of sleep recording has been reviewed and is adequate. RESULTS: Sleep efficiency was extremely short only 13.7%. Latency to sleep onset was significantly prolonged to 53.5 minutes.]. Sleep architecture showed stage N1 was extremely high 63.7%, Delta sleep was absent 0%, REM sleep was absent 0%. Heart rate was minimum 58 BPM, maximum 75 BPM, average 64 BPM. EMG showed 14.1 periodic limb movements per hour with 5.9 micriarousals per hour. PAP titration have been done with CPAP up to the pressure 13 cm H2O. Titration was started with full facemask, but then because of difficulties to tolerate mask was switched to nasal pillows. Very low sleep efficiency lamented. Patient continued to have abnormalities of respiration during the test. IMPRESSION: 1. Severe obstructive sleep apnea hypopnea syndrome with apnea hypopnea index 50.1. Patient had difficulties to tolerate CPAP treatment, very low sleep efficiency. Patient slept totally for 53.5 minutes during the study. 2. Mild periodic limb movements have been documented. Please see other impressions from consultation. PLAN: 1. I will see patient for follow-up visit to discuss results of the sleep study and following plan. I will consider to start patient on AutoPap treatment versus possibility to do BiPAP titration. 2. Watching and losing weight. 3. Sleep hygiene with regular time in bed for at least 8 hours. 4. No driving if feeling any sleepiness. 5. Please check iron profile including ferritin level. Low level of iron may increase risk for periodic limb movements Thank you very much for allowing me to participate in the management of your patient. Sincerely, Nilesh Linn MD, PhD, FAASM Diplomat of [employer] Specialties Sleep Medicine Board of [employer] Board of Internal Medicine Tip Fixer of [facility] [place] cc: Magali Ernst MD
== END 2024-10-20 05:15 | disposition home or self-care (01) ==
LOC: 3 N SLEEP 19:40
PROVIDERS: ATTEND Internal Medicine
DX: G47.33 Obstructive sleep apnea (adult) (pediatric) (principal); G47.61 Periodic limb movement disorder; Z99.89 Dependence on other enabling machines and devices

== ENCOUNTER → 2024-11-19 | Outpatient (CLI) | payer BC ==
[2024-11-19 13:18] VITALS: BP 127/83; PULSE 84; RESP 16; TEMP 97.4
--- NOTE | 2024-11-19 13:53 | P.PROGSL ---
Subjective DATE: 11/19/2024 FOLLOW UP VISIT. Patient returned to sleep center for follow-up visit to discuss results of sleep study send recommendations. I discussed results of sleep studies with patient in details. Home sleep apnea test documented severe obstructive sleep apnea hypopnea syndrome with apnea hypopnea index 50.1 and oxygen saturation to 79%. During CPAP titration procedure secondary to claustrophobia patient did not tolerate CPAP treatment. Also he had problems related to the breathing with CPAP unit. After the test patient was given mask with him for home. Patient started to do desensitization with the mask and presently was able to keep mask on the face. [place] Sleepiness Scale increased to 12 today. MEDICATIONS: Please see below During physical exam: GENERAL: A pleasant patient without any distress. VITAL SIGNS: Please see below, weight 225 pounds. HEENT: PERRLA, EOMI. NECK: Supple. No JVD. LUNGS: Clear to percussion and to auscultation. Good air exchange. No wheezing or rhonchi. HEART: S1, S2 regular. ABDOMEN: Soft and nontender. EXTREMITIES: No clubbing or cyanosis. POULTRY TENDER: Awake, alert, and oriented x3. No focal deficit. Impressions: 1. Severe obstructive sleep apnea hypopnea syndrome with apnea hypopnea index 50.1. Patient did not tolerate CPAP treatment during titration secondary to difficulties to breathe and claustrophobic reactions. Presently on desensitization with CPAP mask at home and was able to wear the mask. 2. Obesity. 3. Hyperlipidemia. 4. Status post nasal reconstruction surgery. Plan: 1. Patient will be started on treatment with AutoPap and should use equipment every night for the whole night. 2. Sleep hygiene with regular time in bed for at least 8 hours. 3. I will see patient for follow-up visit in 31 days after patient will start to use CPAP equipment to evaluate clinical response on treatment, compliance with treatment and [place] adjustments related to mask fitting pressure and humidification. 4. Precautions related to driving. No driving if feel any sleepiness. Patient is aware about civil and criminal liability for unsafe driving, promised to follow recommendations. Thank you very much for allowing me to participate in the management of your patient. Nilesh Linn MD, PhD, FAASM. Diplomat of [place] Board of Sleep Medicine, Sleep Medicine Board by [place] [employer] Internal Medicine [employer] Security Specialist of [facility] [place] cc: Magali Ernst MD Objective - Vital Signs Vital Signs: Vital Signs Temp 97.4 F L 11/19/24 13:17 Pulse 84 11/19/24 13:17 Resp 16 11/19/24 13:17 BP 127/83 11/19/24 13:17 Pulse Ox 96 11/19/24 13:17 FiO2 Intake & Output 11/18/24 11/19/24 11/19/24 18:59 06:59 18:59 Weight 102.058 kg Home Medications: Home Medications Medication Instructions Recorded Confirmed Type Ibuprofen [Advil] 200 mg PO Q8HR PRN 04/02/17 08/12/24 History Atorvastatin [Lipitor] 40 mg PO DAILY 08/12/24 08/12/24 History
== END ==
LOC: 3 N SLEEP 13:01
PROVIDERS: ATTEND Internal Medicine
DX: G47.33 Obstructive sleep apnea (adult) (pediatric) (principal); E66.9 Obesity, unspecified; E78.5 Hyperlipidemia, unspecified; Z99.89 Dependence on other enabling machines and devices; Z98.890 Other specified postprocedural states
CPT/HCPCS: 99212

== ENCOUNTER → 2025-01-20 | Outpatient (CLI) | payer BC ==
[2025-01-20 11:41] VITALS: BP 118/68; PULSE 74; RESP 16; TEMP 97.9
--- NOTE | 2025-01-20 12:13 | P.PROGSL ---
Subjective DATE: 01/20/2025 FOLLOW UP VISIT. Patient with obstructive sleep apnea hypopnea syndrome return to sleep center for follow-up visit. Recently patient had sleep study which documented obstructive sleep apnea hypopnea syndrome. Patient was initiated on PAP therapy and today is first visit after treatment was started. Patient was able to use PAP equipment every night for the whole night. Patient sleeps better and feels better during the day. The patient does not have significant problems with the mask, PAP pressure and humidification. [place] sleepiness scale is 6, which is normal and showed improvement comparing with [place] Sleepiness Scale before starting treatment when it was 12. I checked information from PAP unit. PAP unit pressure 5-12, average 9.9 cm H2O. Usage is 70% for more then 4 hours, average 5 hours per night. Leak is 0.3 l/m, which is in perfect range. Apnea Hypopnea Index is increased to 11.4, which include 8.8 central apneas. MEDICATIONS: Please see below During physical exam: GENERAL: A pleasant patient without any distress. VITAL SIGNS: Please see below. HEENT: PERRLA, EOMI.low position of soft palate, Mallapati 3 . NECK: Supple. No JVD. LUNGS: Clear to percussion and to auscultation. Good air exchange. No wheezing or rhonchi. HEART: S1, S2 regular. ABDOMEN: Soft and nontender.[] EXTREMITIES: No clubbing or cyanosis. PROFESSOR OF PRACTICE: Awake, alert, and oriented x3. No focal deficit. Impressions: 1. Severe obstructive sleep apnea-hypopnea syndrome, original apnea hypopnea index 0.1 with oxygen desaturation to 79%. Patient demonstrated good compliance with treatment, benefiting from treatment. Apnea-hypopnea index improved to 11.4, but patient has 8.8 central apneas per hour. 2. Hyperlipidemia. 3. Status post nasal reconstruction surgery. Plan: 1. Continue using PAP equipment every night for the whole night. 2. To change air filter at least 1-2 times per month. 3. PAP unit should stay lower then position of the head. 4. Advised patient to remove all remaining water from humidifier canister daily and make it dry after each usage. Refill canister with fresh distilled water before each usage. 5. Sleep hygiene with regular time in bed for at least 8 hours. 6. Precautions related to driving. No driving if feel any sleepiness. 7. I will maintain prescription for PAP supplies including mask, tube, filters. 8. Follow up visit in 2 months or earlier if patient has any problems. 9. Watching and continue losing weight. Thank you very much for allowing me to participate in the management of your patient. Nilesh Linn MD, PhD, FAASM. Diplomat of [place] [employer] Sleep Medicine, Sleep Medicine Board by [place] [employer] Medicine Amr Physician of [facility] [place] Objective - Vital Signs Vital Signs: Vital Signs Temp 97.9 F 01/20/25 11:40 Pulse 74 01/20/25 11:40 Resp 16 01/20/25 11:40 BP 118/68 01/20/25 11:40 Pulse Ox 96 01/20/25 11:40 FiO2 Home Medications: Home Medications Medication Instructions Recorded Confirmed Type Ibuprofen [Advil] 200 mg PO Q8HR PRN 04/02/17 08/12/24 History Atorvastatin [Lipitor] 40 mg PO DAILY 08/12/24 08/12/24 History
== END ==
LOC: 3 N SLEEP 11:27
PROVIDERS: ATTEND Internal Medicine
DX: G47.33 Obstructive sleep apnea (adult) (pediatric) (principal); E78.5 Hyperlipidemia, unspecified; Z98.890 Other specified postprocedural states; Z99.89 Dependence on other enabling machines and devices
CPT/HCPCS: 99212

== ENCOUNTER → 2025-04-16 | Outpatient (CLI) | payer BC ==
[2025-04-16 09:24] VITALS: BP 113/67; PULSE 68; RESP 12; TEMP 97.9
--- NOTE | 2025-04-16 10:17 | P.PROGSL ---
Subjective DATE: 04/16/2025 FOLLOW UP VISIT. Patient with obstructive sleep apnea hypopnea syndrome return to sleep center for follow-up visit. Information from previous visit have been reviewed. Patient is using PAP equipment every night for the whole night, getting PAP supplies in time. The patient does not have significant problems with the mask, PAP unit and humidification. Patient feels some irritation in the right nostril. At the present time he does not use nasal pillows. His mask is under the nose [place] sleepiness scale is 5, which is normal. I checked information from PAP unit. PAP unit pressure 5-12, average 10.1 cm H2O. Usage is 100% for more then 4 hours, average 6 hours per night. Leak is 0 l/m, which is in acceptable range. Apnea Hypopnea Index is 10.5 which include obstructive 1.9 and central 7.7, 7.8 for the last night, which showed slight improvement comparing with the previous visit when apnea-hypopnea index was 11.4 with 8.8 centrals. MEDICATIONS have been reviewed, please see below. During physical exam: GENERAL: A pleasant patient without any distress. VITAL SIGNS: Please see below, weight is 249 lbs. HEENT: PERRLA, EOMI.low position of soft palate, Mallapati 3. Possible small irritation in the right nostril NECK: Supple. No JVD. LUNGS: Clear to percussion and to auscultation. Good air exchange. No wheezing or rhonchi. HEART: S1, S2 regular. ABDOMEN: Soft and nontender.[] EXTREMITIES: No clubbing or cyanosis. BAND INSTRUMENT REPAIRER: Awake, alert, and oriented x3. No focal deficit. Impressions: 1. Severe obstructive sleep apnea-hypopnea syndrome. Patient demonstrated great compliance with treatment, benefiting from treatment. Apnea-hypopnea index increased to 10.5, which include 7.7 centrals. Patient feels that he sleeps better and feels better during the day while using CPAP. 2. Very minimal irritation in right nostril. Humidity level in CPAP unit at 4, which is in the middle range. Patient does not use nasal pillow mask, using mask which goes under the nose. 3. Hyperlipidemia. 4. Status post nasal reconstruction surgery. I changed the range of the pressure in CPAP unit up to the level 5-15 cm of water. Plan: 1. Continue using PAP equipment every night for the whole night. 2. Sleep hygiene with regular time in bed for at least 7.5-8 hours 3. PAP unit should stay lower then position of the head. 4. Advised patient to remove all remaining water from humidifier canister daily and make it dry after each usage. Refill canister with fresh distilled water before each usage. 5. Watching weight. 6. Precautions related to driving. No driving if feel any sleepiness. 7. I will maintain prescription for PAP supplies including mask, tube, filters. 8. Follow up visit in 2 months or earlier if patient has any problems. 9. Patient will have evaluation by ear nose and throat physician. Thank you very much for allowing me to participate in the management of your patient. Nilesh Linn MD, PhD, FAASM. Diplomat of [place] [employer] of Sleep Medicine, Sleep Medicine Board by [place] [employer] Cement Truck Loader of [facility] [place] Objective - Vital Signs Vital Signs: Vital Signs Temp 97.9 F 04/16/25 09:23 Pulse 68 04/16/25 09:23 Resp 12 04/16/25 09:23 BP 113/67 04/16/25 09:23 Pulse Ox 98 04/16/25 09:23 FiO2 Intake & Output 04/15/25 04/16/25 04/16/25 18:59 06:59 18:59 Weight 99.337 kg Home Medications: Home Medications Medication Instructions Recorded Confirmed Type Ibuprofen [Advil] 200 mg PO Q8HR PRN 04/02/17 08/12/24 History Atorvastatin [Lipitor] 40 mg PO DAILY 08/12/24 08/12/24 History
== END ==
LOC: 3 N SLEEP 09:07
PROVIDERS: ATTEND Internal Medicine
DX: G47.33 Obstructive sleep apnea (adult) (pediatric) (principal); E78.5 Hyperlipidemia, unspecified; R09.A1 Foreign body sensation, nose; Z99.89 Dependence on other enabling machines and devices; Z98.890 Other specified postprocedural states
CPT/HCPCS: 99212